=== PATIENT | female | born 1985 | race Caucasian/White ===

== ENCOUNTER 2016-09-10 18:22 | Emergency (ER) | payer MEDICAID ==
[~2016-09-10] VITALS: Ht 157.5 cm; Wt 61.5 kg
[~2016-09-10 18:22] MED LIST: ALPR0.5T PO; HYDR-3720 PO; HYDR-906 PO; IBUP-1542 PO; IBUP800T25 PO; MECL-77 PO; ONDA4TAB8 PO
[2016-09-10 18:32] VITALS: Ht 157.5 cm; Wt 61.5 kg
[2016-09-10] MEDS ORDERED: KETOROLAC 30 MG INJ IV STA (19:25)
[2016-09-10] MEDS ORDERED: SOD CHLORIDE 0.9% 1,000 ML IV ONE (19:30)
[2016-09-10 19:35] LABS: URINE BLOOD (Dip) POC 2+ (NEGATIVE)
[2016-09-10 20:14] LABS: ADD SCAN DIFF NO
[2016-09-10 20:16] LABS: BASOPHILS % 0.8 % (0.0-2.0); EOSINOPHILS # 0.1 10^3/ul (0.0-0.5); EOSINOPHILS % 1.8 % (0.0-7.0); HEMATOCRIT 33.9 % (37.0-47.0); HEMOGLOBIN 11.4 g/dl (12.0-16.0); LYMPHOCYTES # 2.1 10^3/ul (0.8-2.9); LYMPHOCYTES % 41.1 % (15.0-51.0); MEAN CORPUSCULAR HEMOGLOBIN 28.1 pg (29.0-33.0); MEAN CORPUSCULAR HGB CONC 33.6 g/dl (32.0-37.0); MEAN CORPUSCULAR VOLUME 83.5 fl (82.0-101.0); MEAN PLATELET VOLUME 11.2 fl (7.4-10.4); MONOCYTE # 0.4 10^3/ul (0.3-0.9); MONOCYTES % 7.5 % (0.0-11.0); NEUTROPHIL # 2.5 10^3/ul (1.6-7.5); NEUTROPHILS % 48.6 % (39.0-77.0); PLATELET COUNT 238 10^3/UL (140-415); RED BLOOD COUNT 4.06 10^6/ul (4.20-5.40); RED CELL DISTRIBUTION WIDTH 13.2 % (11.5-14.5); WHITE BLOOD COUNT 5.1 10^3/ul (4.8-10.8)
[2016-09-10 20:37] LABS: ALBUMIN 4.3 g/dl (3.3-4.9)
[2016-09-10 20:38] LABS: POTASSIUM 3.5 mmol/L (3.5-5.1)
[2016-09-10 20:40] LABS: ALBUMIN/GLOBULIN RATIO 1.3; BILIRUBIN,INDIRECT 0.3 mg/dl (0-1.1); BILIRUBIN,TOTAL 0.3 mg/dl (0.2-1.3); CREATININE 0.57 mg/dl (0.44-1.00); TOTAL PROTEIN 7.6 g/dl (6.1-8.1)
[2016-09-10 20:41] LABS: CALCIUM 9.1 mg/dl (8.4-10.2)
[2016-09-10] MEDS ORDERED: NITR-58 PO (20:53)
[2016-09-10] MEDS ORDERED: NAPR-260 PO (20:53)
--- NOTE | 2016-09-10 21:18 | ERD ---
ER Documentation Chief Complaint Date/Time DATE: 09/10/16 TIME: 21:14 Chief Complaint headache x 1 week HPI This is a 31-year-old female presents to the ER with a headache that she has been having intermittently over the last year. Patient states over the last week headache is gotten worse. Headache is described as pressure-like and located all over her head. It has been constant over this last week. Patient recently got new glasses states that this helped her headache a little bit. Patient denies any nausea vomiting or photophobia. She tried taking ibuprofen however it did not work. She denies any fevers or chills she denies any trauma. ROS 12 point review of systems was done, all negative except per HPI. Medications Home Meds Active Scripts Nitrofurantoin Monohyd Macrocr* (Macrobid*) 100 Mg Capsr, 100 MG PO BID for 7 Days, CAP Prov:SEGUNDO SALAZAR C 09/10/16 Naproxen* (Naprosyn*) 500 Mg Tablet, 500 MG PO BID Y for PAIN AND/OR INFLAMMATION, #30 TAB Prov:SEGUNDO SALAZAR C 09/10/16 Hydrocodone/Acetaminophen ([place] 5-325 Tablet) 1 Each Tablet, 1 EACH PO Q6, #5 TAB Prov:MARALFARHEEN DO 03/09/16 Hydrocodone Bit-Acetaminophen* ([place]*) 7.5-325 Tablet, 1 TAB PO Q4H Y for PAIN , #20 TAB Prov:JORDAN DAUGHERTYSTOLOS A. DO 09/29/15 Ibuprofen* (Motrin*) 800 Mg Tab, 800 MG PO Q6H Y for PAIN AND OR ELEVATED TEMP, #30 TAB Prov:JORDAN DAUGHERTYSTLANIES A. DO 09/29/15 Meclizine Hcl* (Meclizine Hcl*) 25 Mg Tablet, 25 MG PO Q8H Y for dizziness, #20 TAB Prov:JOSE MELLO PA-C 09/12/15 Ondansetron Hcl* (Zofran*) 4 Mg Tablet, 4 MG PO Q6H for NAUSEA, #20 TAB Prov:JOSE MELLO PA-C 09/12/15 Ibuprofen* (Motrin*) 600 Mg Tab, 600 MG PO Q6 Y for HEADACHE, #20 TAB Prov:JOSE MELLO PA-C 09/12/15 Alprazolam* (Xanax*) 0.5 Mg Tab, 0.5 MG PO Q8H Y for ANXIETY, #4 TAB Prov:KOWALSKIPHYLICIA PA-C 12/24/14 Allergies Allergies: Coded Allergies: No Known Drug Allergy (Verified Allergy, Mild, 07/19/08) PMhx/Soc History of Surgery: No Anesthesia Reaction: No Hx Neurological Disorder: Yes (ROSARIO) Hx Respiratory Disorders: No Hx Cardiac Disorders: No Hx Psychiatric Problems: No Hx Miscellaneous Medical Probl: No Hx Alcohol Use: No Hx Substance Use: No Hx Tobacco Use: No Smoking Status: Never smoker Physical Exam Vitals Vital Signs Date Time Temp Pulse Resp B/P Pulse Ox O2 Delivery O2 Flow Rate FiO2 09/10/16 18:32 98.5 61 20 106/58 100 Physical Exam GENERAL: The patient is well developed and appropriate for usual state of health , in no apparent distress. HEENT: Atraumatic. Conjunctivae are pink. Pupils equal, round, and reactive to light. Extraocular muscles are grossly intact. Bilateral tympanic membranes are clear with no evidence of erythema, bulging or perforation. No sinus tenderness. NECK: C-spine is soft and supple. There is no cervical lymphadenopathy. CHEST: Clear to auscultation bilaterally. There are no rales, wheezes or rhonchi. HEART: Regular rate and rhythm. No murmurs, clicks, rubs or gallops. EXTREMITIES: Equal pulses bilaterally. There is no peripheral clubbing, cyanosis or edema. No focal swelling or erythema. Full range of motion. Grossly neurovascularly intact. NEURO: Alert and oriented. Cranial nerves II through XII are intact. Motor strength in all 4 extremities with 5/5 strength. Sensation grossly intact. Normal speech and gait. Negative Rhomberg. +2 DTRs. SKIN: There is no apparent rash or petechia. The skin is warm and dry. Result Diagram: 09/10/16195409/10/161954 Results 24 hrs Laboratory Tests Test 09/10/16 19:37 09/10/16 19:55 Bedside Urine pH (LAB) 5.5 Bedside Urine Protein (LAB) Negative Bedside Urine Glucose (UA) Negative Bedside Urine Ketones (LAB) Negative Bedside Urine Blood 2+ Bedside Urine Nitrite (LAB) Negative Bedside Urine Leukocyte Esterase (L 2+ White Blood Count 5.110^3/ul Red Blood Count 4.0610^6/ul Hemoglobin 11.4g/dl Hematocrit 33.9% Mean Corpuscular Volume 83.5fl Mean Corpuscular Hemoglobin 28.1pg Mean Corpuscular Hemoglobin Concent 33.6g/dl Red Cell Distribution Width 13.2% Platelet Count 57876^3/UL Mean Platelet Volume 11.2fl Neutrophils % 48.6% Lymphocytes % 41.1% Monocytes % 7.5% Eosinophils % 1.8% Basophils % 0.8% Nucleated Red Blood Cells % 0.0/100WBC Neutrophils # 2.510^3/ul Lymphocytes # 2.110^3/ul Monocytes # 0.410^3/ul Eosinophils # 0.110^3/ul Basophils # 0.010^3/ul Nucleated Red Blood Cells # 0.010^3/ul Sodium Level 140mmol/L Potassium Level 3.5mmol/L Chloride Level 104mmol/L Carbon Dioxide Level 23mmol/L Anion Gap 17 Blood Urea Nitrogen 13mg/dl Creatinine 0.57mg/dl Glucose Level 90mg/dl Calcium Level 9.1mg/dl Total Bilirubin 0.3mg/dl Direct Bilirubin 0.00mg/dl Indirect Bilirubin 0.3mg/dl Aspartate Amino Transf (AST/SGOT) 27IU/L Alanine Aminotransferase (ALT/SGPT) 25IU/L Alkaline Phosphatase 70IU/L Total Protein 7.6g/dl Albumin 4.3g/dl Globulin 3.30g/dl Albumin/Globulin Ratio 1.30 Current Medications Medications (Trade) Dose Ordered Sig/Jamie Route PRN Reason Start Time Stop Time Status Last Admin Dose Admin Ketorolac Tromethamine 30 mg 30 mg ONCE STAT IV 09/10/16 19:25 09/10/16 19:28 DC 09/10/16 19:50 Sodium Chloride (NS) 1,000 ml @ 1,000 mls/hr Q1H ONCE IV 09/10/16 19:30 09/10/16 20:29 DC 09/10/16 19:50 Procedures/MDM Differential Diagnosis includes but is not limited to; tension headache, migraine headache, cluster headache, sinus headache, nonspecific febrile headache, trigeminal neurologia, subdural hematoma, subarachnoid bleeding, meningitis, encephalitis. Patient is neurologically intact with no focal neurological deficits. At this point I do not believe that CT imaging is needed as this is acute on chronic pain. Physical examination is completely benign with no history of trauma. Patient was given Toradol in the ER significantly better. Patient was found to have a urinary tract infection. She will be sent home with Macrobid. Patient is to follow-up with her primary care doctor within 1-2 days return to ER sooner if symptoms worsen. My medical decision making shared with the patient she understands and agrees with plan. Patient is stable for outpatient follow-up. Departure Diagnosis: Primary Impression: UTI (urinary tract infection) Additional Impression: Headache Condition: Stable Patient Instructions: Understanding Urinary Tract Infections (UTIs), Self-Care for Headaches Additional Instructions: Llame al doctor MAANA y samia manuel BHAVNA PARA DENTRO DE 1-2 ROCHE.Dgale a la secretaria que nosotros le instruimos hacer esta bhavna.Avise o llame si lechuga condicin se empeora antes de la bhavna. Regresa aqui si peor o no mejor. SEGUNDO SALAZAR September 10, 2016 21:18
[2016-09-10 21:25] VITALS: BP 116/58; PULSE 60; RESP 16; TEMP 98.1
== END 2016-09-10 21:25 | disposition home or self-care (01) ==
LOC: FTE 18:22
DX: N39.0 Urinary tract infection, site not specified (principal)
CPT/HCPCS: 80053; 81003; 85025; 96361; 96374; J1885; J7030; Z7502

== ENCOUNTER 2016-09-29 19:03 | Emergency (ER) | payer MEDICAID ==
[~2016-09-29] VITALS: Ht 157.5 cm; Wt 62.0 kg
[~2016-09-29 19:03] MED LIST changes: +NAPR-260 PO; +NITR-58 PO
[2016-09-29 19:51] VITALS: Ht 157.5 cm; Wt 62.0 kg
--- NOTE | 2016-09-29 21:51 | RADRPT ---
PROCEDURE: Ultrasound of the left lower extremity venous system. CLINICAL INDICATION: Left leg pain and swelling, deep venous thrombosis TECHNIQUE: Joaquin scale with and without compression, color doppler, spectral doppler of the venous system of the left lower extremity was performed. Venous augmentation maneuvers were utilized. COMPARISON: No prior studies are available for comparison. FINDINGS: Common femoral vein: Patent. Femoral vein: Patent. Popliteal vein: Patent. Calf veins: Patent. No soft tissue abnormalities are identified. IMPRESSION: No evidence of a deep vein thrombosis within the left lower extremity. RPTAT: AADD .Barak Coleman MD, MD Date Time Electronically viewed and signed by .Barak Coleman MD, on 09/29/2016 21:51 .B/
--- NOTE | 2016-09-29 22:06 | RADRPT ---
PROCEDURE: XR Left Foot CLINICAL INDICATION: Pain status post trauma TECHNIQUE: AP, oblique, and lateral radiographs were submitted. COMPARISON: None FINDINGS: Osseous structures: appear well mineralized and intact with no fracture or destructive process iden tified. Joint spaces: are well maintained, with no significant spurring, erosion or joint effusion evident. Soft tissues: appear unremarkable. IMPRESSION: Unremarkable left foot. Physician Sri Date Time Electronically viewed and signed by Physician Sri on 09/29/2016 22:06 /
--- NOTE | 2016-09-29 22:07 | RADRPT ---
PROCEDURE: XR Left Ankle CLINICAL INDICATION: Pain status post trauma TECHNIQUE: Standard 3 view radiographs were submitted. COMPARISON: None FINDINGS: Osseous structures: Well mineralized and intact with no fracture or destructive process identified. Joint spaces: Well maintained with no significant erosions or spurring evident. Soft tissues: Appear unremarkable. IMPRESSION: Unremarkable left ankle. Physician Sri Date Time Electronically viewed and signed by Kvng Khanna Physician on 09/29/2016 22:07 /
[2016-09-29] MEDS ORDERED: NAPR-260 PO (22:15)
--- NOTE | 2016-09-29 22:18 | ERD ---
ER Documentation Chief Complaint Date/Time DATE: 09/29/16 TIME: 22:16 Chief Complaint LT FOOT PAIN X4 DAYS. HPI Patient is a 31-year-old female with no past medical history who presents to the ED with left great toe and foot pain after sustaining an injury 3 days ago. She states that somebody stepped on her foot 2 times. She states that she has difficulty applying pressure to her foot. States that she has mild pain in her ankle and leg. Denies pain in her knee or hips. Denies hitting her head or passing out or losing consciousness. Denies chest pain or cough or shortness of breath. Denies recent travel or recent surgeries or recent of OCPs. No other complaints per ROS All systems reviewed and are negative except as per history of present illness. Medications Home Meds Active Scripts Naproxen* (Naprosyn*) 500 Mg Tablet, 500 MG PO BID Y for PAIN AND/OR INFLAMMATION, #30 TAB Prov:JAMMIE BAILEY PA-C 09/29/16 Nitrofurantoin Monohyd Macrocr* (Macrobid*) 100 Mg Capsr, 100 MG PO BID for 7 Days, CAP Prov:SEGUNDO SALAZAR C 09/10/16 Naproxen* (Naprosyn*) 500 Mg Tablet, 500 MG PO BID Y for PAIN AND/OR INFLAMMATION, #30 TAB Prov:SEGUNDO SALAZAR C 09/10/16 Hydrocodone/Acetaminophen ([place] 5-325 Tablet) 1 Each Tablet, 1 EACH PO Q6, #5 TAB Prov:FARHEEN ALICIA DO 03/09/16 Hydrocodone Bit-Acetaminophen* ([place]*) 7.5-325 Tablet, 1 TAB PO Q4H Y for PAIN , #20 TAB Prov:LEKKOS,APOSTOLOS A. DO 09/29/15 Ibuprofen* (Motrin*) 800 Mg Tab, 800 MG PO Q6H Y for PAIN AND OR ELEVATED TEMP, #30 TAB Prov:LEKKOS,APOSTOLOS A. DO 09/29/15 Meclizine Hcl* (Meclizine Hcl*) 25 Mg Tablet, 25 MG PO Q8H Y for dizziness, #20 TAB Prov:JOSE MELLO PA-C 09/12/15 Ondansetron Hcl* (Zofran*) 4 Mg Tablet, 4 MG PO Q6H for NAUSEA, #20 TAB Prov:JOSE MELLONohemi POTTSC 09/12/15 Ibuprofen* (Motrin*) 600 Mg Tab, 600 MG PO Q6 Y for HEADACHE, #20 TAB Prov:JOSE MELLONohemi POTTSC 09/12/15 Alprazolam* (Xanax*) 0.5 Mg Tab, 0.5 MG PO Q8H Y for ANXIETY, #4 TAB Prov:KELIN KOWALSKIZARAQUEL Peterson PA-C 12/24/14 Allergies Allergies: Coded Allergies: No Known Drug Allergy (Verified Allergy, Mild, 09/29/16) PMhx/Soc Medical and Surgical Hx: pt denies Surgical Hx History of Surgery: No Anesthesia Reaction: No Hx Neurological Disorder: Yes (ROSARIO) Hx Respiratory Disorders: No Hx Cardiac Disorders: No Hx Psychiatric Problems: No Hx Miscellaneous Medical Probl: No Hx Alcohol Use: No Hx Substance Use: No Hx Tobacco Use: No Smoking Status: Never smoker FmHx Family History: No coronary disease, No diabetes, No other Physical Exam Vitals Vital Signs Date Time Temp Pulse Resp B/P Pulse Ox O2 Delivery O2 Flow Rate FiO2 09/29/16 19:51 99.1 66 18 125/53 97 Physical Exam GENERAL: Well-developed, well-nourished female. Appears in no acute distress. HEAD: Normocephalic, atraumatic. EYES: Pupils are equally reactive bilaterally. EOMs grossly intact. No conjunctival erythema. ENT: Moist mucous membranes. No uvula deviation. No kissing tonsils. No exudates. NECK: Supple. No lymphadenopathy or thyromegaly. No meningismus. negative kernig. negative brudinski. LUNG: Clear to auscultation bilaterally. No rhonchi, wheezing, rales or coarse breath sounds. HEART: Regular rate and rhythm. No murmurs, rubs or gallops. Extremities: Equal pulses bilaterally. No peripheral clubbing, cyanosis or edema. No unilateral leg swelling. Left foot is slightly swollen and ecchymosis. Tenderness to the left great toe. Negative Homans sign. No palpable cord. No step-offs or deformities. Pulses intact bilaterally. Mild tenderness to the bilateral malleoli. NEUROLOGIC: Alert and oriented. Moving all four extremities. 5/5 strength in all extremities. Normal speech. unSteady gait. SKIN: Normal color. Warm and dry. No rashes or lesions. Capillary refill < 2 seconds Procedures/MDM ER COURSE: I kept the patient and/or family informed of laboratory and diagnostic imaging results throughout the emergency room course. IMAGING STUDIES [place] [address] Radiology Main Line: [phone] DIAGNOSTIC IMAGING REPORT Patient: IKE GALDAMEZ : 1985 Age: 31 Sex: F MR #: [id number] DOS: 09/29/162058 Ordering MD: JAMMIE BAILEY PA-C Location: [facility] Room/Bed: PROCEDURE: XR Left Ankle CLINICAL INDICATION: Pain status post trauma TECHNIQUE: Standard 3 view radiographs were submitted. COMPARISON: None FINDINGS: Osseous structures: Well mineralized and intact with no fracture or destructive process identified. Joint spaces: Well maintained with no significant erosions or spurring evident. Soft tissues: Appear unremarkable. IMPRESSION: Unremarkable left ankle. Physician Sri Date Time Electronically viewed and signed by Physician Sri on 09/29/2016 22:07 RH/ CC: JAMMIE BAILEY PA-C [place] [address] Radiology Main Line: [phone] DIAGNOSTIC IMAGING REPORT Patient: IKE GALDAMEZ : 1985 Age: 31 Sex: F MR #: [id number] DOS: 09/29/162058 Ordering MD: JAMMIE BAILEY PA-C Location: [facility] Room/Bed: PROCEDURE: Ultrasound of the left lower extremity venous system. CLINICAL INDICATION: Left leg pain and swelling, deep venous thrombosis TECHNIQUE: Joaquin scale with and without compression, color doppler, spectral doppler of the venous system of the left lower extremity was performed. Venous augmentation maneuvers were utilized. COMPARISON: No prior studies are available for comparison. FINDINGS: Common femoral vein: Patent. Femoral vein: Patent. Popliteal vein: Patent. Calf veins: Patent. No soft tissue abnormalities are identified. IMPRESSION: No evidence of a deep vein thrombosis within the left lower extremity. RPTAT: AADD .Barak Coleman MD, Date Time Electronically viewed and signed by .Barak Coleman MD, MD on 09/29/2016 21:51 .B/ CC: JAMMIE BAILEY PA-C [place] [address] Radiology Main Line: [phone] DIAGNOSTIC IMAGING REPORT Patient: IKE GALDAMEZ : 1985 Age: 31 Sex: F MR #: [id number] DOS: 09/29/162058 Ordering MD: JAMMIE BAILEY PA-C Location: [facility] Room/Bed: PROCEDURE: XR Left Foot CLINICAL INDICATION: Pain status post trauma TECHNIQUE: AP, oblique, and lateral radiographs were submitted. COMPARISON: None FINDINGS: Osseous structures: appear well mineralized and intact with no fracture or destructive process identified. Joint spaces: are well maintained, with no significant spurring, erosion or joint effusion evident. Soft tissues: appear unremarkable. IMPRESSION: Unremarkable left foot. Physician Sri Date Time Electronically viewed and signed by Physician Sri on 09/29/2016 22:06 RH/ CC: JAMMIE BAILEY PA-C MEDICAL DECISION MAKING: This is a 31-year-old female who presents with left foot pain 3 days after being stepped on the foot. Vital signs were reviewed. Patient is afebrile. Patient is not hypoxic. Patient is not toxic or ill-appearing. X-rays of by radiologist unremarkable for fracture dislocation. Ultrasound is negative for DVT. Patient likely has muscle strain versus sprain versus contusion. Low suspicion for dislocation, fracture, septic joint, compartment syndrome, osteomyelitis, avascular necrosis, DVT, Achilles tendon rupture, cellulitis. At this time, unable to rule out any tendon and ligament injuries. Patient was given an Wagner wrap and crutches. Neurovascularly intact post Wagner placement DISCHARGE: At this time, patient is stable for discharge and outpatient management with no new complaints during the ER course. Patient was sent home with Naprosyn and copy of imaging studies, Wagner wrap and crutches and to follow-up with orthopedics per. Patient will be discharged home with instructions to recheck for new or worsening symptoms such as fever, nausea, weakness, LOC and to follow up with primary care in the next 1-2 days. Patient was advised to return to the ER for any new or worsening symptoms. Plan was discussed and patient and/ or family understands and agrees. Home instructions were given. Departure Diagnosis: Primary Impression: Foot pain Laterality: left Qualified Code: M79.672 - Left foot pain Condition: Stable Patient Instructions: Sprain Foot Referrals: [facility] 7 a.m.- 11 p.m. Every Day of the Week NO APPOINTMENT OR AUTHORIZATION NEEDED Additional Instructions: Call your primary care doctor TOMORROW for an appointment during the next 1-2 days.See the doctor sooner or return here if your condition worsens before your appointment time. JAMMIE BAILEY PA-C Sep 29, 2016 22:18
[2016-09-29 23:06] VITALS: BP 100/60; PULSE 68; RESP 20; TEMP 98
== END 2016-09-29 23:08 | disposition home or self-care (01) ==
LOC: FTE 19:03
DX: M79.672 Pain in left foot (principal)
CPT/HCPCS: 73610; 73630; 93971; Z7502

== ENCOUNTER 2017-01-13 20:37 | Emergency (ER) | payer MEDICAID ==
[~2017-01-13] VITALS: Ht 160 cm; Wt 63.0 kg
[2017-01-13 20:45] VITALS: Ht 160 cm; Wt 63.0 kg
[2017-01-13] MEDS ORDERED: KETOROLAC 30 MG INJ IM STA (22:28)
--- NOTE | 2017-01-13 23:10 | RADRPT ---
PROCEDURE: XR Chest. CLINICAL INDICATION: Low back pain. TECHNIQUE: Single frontal view of the chest. COMPARISON: None. FINDINGS: The cardiomediastinal silhouette is within normal limits. The lungs are clear. No signs of pleural f luid or pneumothorax are seen. The osseous structures and soft tissues are unremarkable. IMPRESSION: No evidence for active cardiopulmonary disease. RPTAT: [facility] Physician Gena Date Time Electronically viewed and signed by Physician Gena on 01/13/2017 23:10 RS/
[2017-01-13] MEDS ORDERED: IBUP400T22 PO (23:39)
[2017-01-13] MEDS ORDERED: TRAM50TA2 PO (23:39)
[2017-01-13 23:52] LABS: URINE BLOOD (Dip) POC Trace-intact (NEGATIVE)
[2017-01-14 00:27] VITALS: BP 105/59; PULSE 65; RESP 17; TEMP 98
--- NOTE | 2017-01-22 13:17 | ERD ---
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 No trauma or injury to back. No recent fall. No dysuria or hematuria. Patient did not take any medications at home. No chest pain, shortness breath or difficulty breathing. ROS All systems reviewed and are negative except as per history of present illness. Medications Home Meds Active Scripts Tramadol HCl (Tramadol HCl) 50 Mg Tablet, 50 MG PO Q4 Y for PAIN, #10 TAB Prov:MOLLY MOCK NP 01/13/17 Ibuprofen* (Motrin*) 400 Mg Tab, 400 MG PO Q6, #30 TAB Prov:MOLLY MOCK NP 01/13/17 Naproxen* (Naprosyn*) 500 Mg Tablet, 500 MG PO BID Y for PAIN AND/OR INFLAMMATION, #30 TAB Prov:JAMMIE BAILEY PA-C 09/29/16 Nitrofurantoin Monohyd Macrocr* (Macrobid*) 100 Mg Capsr, 100 MG PO BID for 7 Days, CAP Prov:SEGUNDO SALAZAR 09/10/16 Naproxen* (Naprosyn*) 500 Mg Tablet, 500 MG PO BID Y for PAIN AND/OR INFLAMMATION, #30 TAB Prov:SEGUNDO SALAZAR C 09/10/16 Hydrocodone/Acetaminophen ([place] 5-325 Tablet) 1 Each Tablet, 1 EACH PO Q6, #5 TAB Prov:FARHEEN ALICIA DO 03/09/16 Hydrocodone Bit-Acetaminophen* ([place]*) 7.5-325 Tablet, 1 TAB PO Q4H Y for PAIN , #20 TAB Prov:JORDAN DAUGHERTYSTLANIES ANohemi DO 09/29/15 Ibuprofen* (Motrin*) 800 Mg Tab, 800 MG PO Q6H Y for PAIN AND OR ELEVATED TEMP, #30 TAB Prov:JORDAN DAUGHERTYSTOLOS A. DO 09/29/15 Meclizine Hcl* (Meclizine Hcl*) 25 Mg Tablet, 25 MG PO Q8H Y for dizziness, #20 TAB Prov:JOSE MELLO PA-C 09/12/15 Ondansetron Hcl* (Zofran*) 4 Mg Tablet, 4 MG PO Q6H for NAUSEA, #20 TAB Prov:JOSE MELLOC 09/12/15 Ibuprofen* (Motrin*) 600 Mg Tab, 600 MG PO Q6 Y for HEADACHE, #20 TAB Prov:JOSE MELLO PA-C 09/12/15 Alprazolam* (Xanax*) 0.5 Mg Tab, 0.5 MG PO Q8H Y for ANXIETY, #4 TAB Prov:PHYLICIA KOWALSKI PA-C 12/24/14 Allergies Allergies: Coded Allergies: No Known Drug Allergy (Verified Allergy, Mild, 09/29/16) PMhx/Soc History of Surgery: No Anesthesia Reaction: No Hx Neurological Disorder: Yes (ROSARIO) Hx Respiratory Disorders: No Hx Cardiac Disorders: No Hx Psychiatric Problems: No Hx Miscellaneous Medical Probl: Yes (L Tonsillitis) Hx Alcohol Use: No Hx Substance Use: No Hx Tobacco Use: No Smoking Status: Never smoker Physical Exam Physical Exam Const: No acute distress, alert, temp 98.1F, pulse 88 bpm, blood pressure 105/53, respirations 20, oxygen saturation 100% on room air. Head: Atraumatic Eyes: Normal Conjunctiva ENT: Normal External Ears, Nose and Mouth. Neck: Full range of motion..~ No meningismus. Resp: Clear to auscultation bilaterally Cardio: Regular rate and rhythm, no murmurs Abd: Soft, non tender, non distended. Normal bowel sounds Skin: No petechiae or rashes Back: No midline or flank tenderness. No CVA tenderness Ext: No cyanosis, or edema. Sensation fully intact. Pedal pulses palpable 2 + bilaterally. Positive straight leg raise. Neur: Awake and alert Psych: Normal Mood and Affect Results 24 hrs Laboratory Tests Test 01/13/17 23:59 Bedside Urine pH (LAB) 6.5 Bedside Urine Protein (LAB) Negative Bedside Urine Glucose (UA) Negative Bedside Urine Ketones (LAB) Negative Bedside Urine Blood Trace-intact Bedside Urine Nitrite (LAB) Negative Bedside Urine Leukocyte Esterase (L Negative Current Medications Medications (Trade) Dose Ordered Sig/Jamie Route PRN Reason Start Time Stop Time Status Last Admin Dose Admin Ketorolac Tromethamine (Toradol) 30 mg ONCE STAT IM 01/13/17 22:28 01/13/17 22:30 DC 01/13/17 23:17 Procedures/MDM [place] [id number] Radiology Main Line: [phone] DIAGNOSTIC IMAGING REPORT Patient: IKE GALDAMEZ : 1985 Age: 31 Sex: F MR #: [id number] DOS: 01/13/178 Ordering MD: MOLLY ROBLES NP Location: [facility] Room/Bed: PROCEDURE: XR Chest. CLINICAL INDICATION: Low back pain. TECHNIQUE: Single frontal view of the chest. COMPARISON: None. FINDINGS: The cardiomediastinal silhouette is within normal limits. The lungs are clear. No signs of pleural fluid or pneumothorax are seen. The osseous structures and soft tissues are unremarkable. IMPRESSION: No evidence for active cardiopulmonary disease. MDM: This is a 31-year-old female presenting to emergency department for lower back pain with numbness and tingling to bilateral lower extremities. Sensation is fully intact. Pedal pulses are palpable. No recent trauma or injury to area. Patient given Toradol 30 mg IM while in the ED. Urine dip is negative for infection. Urine is negative. Chest x-ray reviewed by radiologist as no evidence for active cardiopulmonary disease. Upon reassessment, patient states pain has improved. Low suspicion for acute dislocation or fracture. Patient is appropriate for outpatient management will be given prescription for tramadol 50 mg #10 and ibuprofen 400 mg #30. Instructed patient to follow-up with primary care provider in the next 2-3 days for reassessment and additional management. Resources provided. Return to ED for any high fever, chest pain, difficulty breathing, shortness breath, wheezing, vomiting, diarrhea, abdominal pain or any new or worsening symptoms. Patient verbalizes understanding. All questions answered at discharge. Disclaimer: Inadvertent spelling and grammatical errors are likely due to EHR/ dictation software use and do not reflect on the overall quality of patient care. Also, please note that the electronic time recorded on this note does not necessarily reflect the actual time of the patient encounter. Departure Diagnosis: Primary Impression: Back pain Back pain location: low back pain Chronicity: acute Back pain laterality: bilateral Sciatica presence: with sciatica Sciatica laterality: bilateral sciatica Qualified Code: M54.42 - Acute bilateral low back pain with bilateral sciatica Condition: Stable Patient Instructions: Back Pain (Acute Or Chronic), Back Pain W/ Sciatica [facility] Usted se rosario hecho un examen mdico de control que le indica que no est en manuel condicin que requiera tratamiento urgente en el Departamento de Emergencia. Un estudio ms profundo y el tratamiento de lechuga condicin pueden esperar sin ningn riesgo hasta que usted sea atendida/o en el consultorio de lechuga mdico o manuel cl devante. Es responsabilidad suya arreglar manuel bhavna para el seguimiento del peter. MANEJO DE CONDICIONES NO URGENTES EN EL FUTURO 1) Si usted tiene un mdico de atencin primaria: Usted debera llamar a lechuga mdico de atencin primaria antes de venir al departamento de emergencia. Despus de las horas de consultorio, lechuga doctor o lechuga asociado/a est disponible por telfono. El mdico o enfermero de sonia en el servicio telefnico puede asesorarle por heath medio para atender el problema, o peter contrario se puede programar manuel bhavna. 2) Si usted no tiene un mdico de atencin primaria: Llame al mdico o clnica de referencia que aparece abajo deana las horas de consultorio para hacer manuel bhavna para que le vean. CLINICAS: [facility] [phone] [facility] [phone] [facility] [phone] [facility] [phone] [place] [phone] [facility] [phone] [facility] () Rashid se rosario hecho un examen mdico de control que le indica que no est en manuel condicin que requiera tratamiento urgente en el Departamento de Emergencia. Un estudio ms profundo y el tratamiento de lechuga condicin pueden esperar sin ningn riesgo hasta que usted sea atendida/o en el consultorio de lechuga mdico o manuel cl devante. Es responsabilidad suya arreglar manuel bhavna para el seguimiento del peter. MANEJO DE CONDICIONES NO URGENTES EN EL FUTURO 1) Si usted tiene un mdico de atencin primaria: Usted debera llamar a lechuga mdico de atencin primaria antes de venir al departamento de emergencia. Despus de las horas de consultorio, lechuga doctor o lechuga asociado/a est disponible por telfono. El mdico o enfermero de sonia en el servicio telefnico puede asesorarle por heath medio para atender el problema, o peter contrario se puede programar manuel bhavna. 2) Si usted no tiene un mdico de atencin primaria: Llame al mdico o condado institucions de referencia que aparece abajo deana las horas de consultorio para hacer manuel bhavna para que le vean. SI USTED NO PUEDE PAGAR PARA VERÓNICA UN MEDICO puede ir a: [facility] [address] [place] [address] [facility] [address] [place] [address] [facility] [address] [place] [address] PARA [facility] [address] [place] [address] Additional Instructions: Llame al doctor MAANA y samia manuel BHAVNA PARA DENTRO DE 2-3 ROCHE.Dgale a la secretaria que nosotros le instruimos hacer esta bhavna.Avise o llame si lechuga condicin se empeora antes de la bhavna. Regresa aqui si peor o no mejor. Regresar a ED por fiebre candy, dolor en el pecho, dificultad para respirar, respiracin entrecortada, sibilancias, vmitos, diarrea, dolor abdominal o cualquier sntoma nuevo o que empeora. MOLLY MOCK NP Jan 22, 2017 13:17
== END 2017-01-14 00:30 | disposition home or self-care (01) ==
LOC: FTE 20:37
DX: M54.42 Lumbago with sciatica, left side (principal); R07.9 Chest pain, unspecified
CPT/HCPCS: 71010; 81003; 93005; 96372; J1885; Z7502

== ENCOUNTER 2017-11-21 21:58 | Emergency (ER) | END 2017-11-22 01:21 | disposition home or self-care (01) ==

== ENCOUNTER 2018-03-09 14:02 | Emergency (ER) | END 2018-03-09 15:04 | disposition home or self-care (01) ==